=== PATIENT | female | born 1940 | race Caucasian/White ===

== ENCOUNTER 2019-07-13 23:06 | Inpatient (IN) | payer OTHER ==
[~2019-07-13] VITALS: Ht 165.1 cm; Wt 70.8 kg
--- NOTE | 2019-07-13 23:17 | NUR ---
Patient brought in by rescue ambulance 90 for c/o of headache and dizziness. Patient farsi speaking only. Placed in bed 2B, attached to bedside monitor. Pt noted to be grabbing her head No acute distress. Awaiting MD roberts.
[2019-07-13] MEDS ORDERED: ONDANSETRON 4 MG/2 ML VIAL IV ONE (23:30)
[2019-07-13] MEDS ORDERED: IV NS 1000 ML 1,000 ML IV ONE (23:30)
[2019-07-13] MEDS ORDERED: ONDANSETRON 4 MG/2 ML VIAL ONE (23:34)
[2019-07-13 23:50] LABS: BASOPHILS % (AUTO) 0.6 % (0.0-2.0); EOSINOPHILS % (AUTO) 0.4 % (0.0-7.0); HEMATOCRIT 34.1 % (31.2-41.9); HEMOGLOBIN 11.6 g/dL (10.9-14.3); LYMPHOCYTES # (AUTO) 1.4 K/uL (20.0-40.0); LYMPHOCYTES % (AUTO) 32.1 % (20.5-51.5); MEAN CORPUSCULAR HEMOGLOBIN 29.2 uug (24.7-32.8); MEAN CORPUSCULAR HGB CONC 34 g/dL (32.3-35.6); MEAN CORPUSCULAR VOLUME 86.2 fL (75.5-95.3); MONOCYTES # (AUTO) 0.6 K/uL (2.0-10.0); MONOCYTES % (AUTO) 13.8 % (0.0-11.0); NEUTROPHILS # (AUTO) 2.3 K/uL (1.8-8.9); NEUTROPHILS % (AUTO) 53.1 % (38.5-71.5); PLATELET COUNT (AUTO) 194 K/uL (179-408); RED BLOOD CELL COUNT(AUTO) 3.95 MIL/uL (3.63-4.92); WHITE BLOOD COUNT (AUTO) 4.4 K/uL (3.8-11.8)
--- NOTE | 2019-07-13 23:55 | NUR ---
Pt taken for CT
[2019-07-14] VITALS (8 sets, daily range): BP systolic 104–140; BP diastolic 42–95
[2019-07-14 00:12] LABS: CREATININE 0.9 mg/dL (0.6-1.3); POTASSIUM 3.3 mmol/L (3.5-5.1)
[2019-07-14 00:18] LABS: BILIRUBIN,DIRECT 0.1 mg/dL (0.0-0.2); BILIRUBIN,TOTAL 0.4 mg/dL (0.2-1.0); TOTAL PROTEIN, SERUM 7.3 g/dL (6.4-8.2)
[2019-07-14 00:25] LABS: *BILIRUBIN,URIN NEGATIVE (NEGATIVE); *CLARITY,URINE CLEAR (CLEAR); *COLOR,URINE YELLOW (YELLOW); *KETONES,URINE NEGATIVE (NEGATIVE); *UROBILINOGEN,URINE 0.2 E.U./dl (NORMAL); LEUKOCYTE ESTERASE ,URINE NEGATIVE (NEGATIVE); NITRITE, URINE NEGATIVE (NEGATIVE); UGLUCOSE NEGATIVE (NEGATIVE)
--- NOTE | 2019-07-14 00:30 | NUR ---
Pt back from CT accompanied by [employer] [facility] via [employer]. NAD, RA Reports significant decrease in dizziness Insisted on ambulating towards the bathroom assisted by daughter. Placed back on monitor IV saline intact and infusing well
[2019-07-14 00:33] LABS: *BLOOD, URINE TRACE (NEGATIVE)
[2019-07-14 00:34] LABS: BACTERIA,URINE R /HPF (NONE SEEN); MUCUS,URINE MODERATE /LPF (0-FEW); SQUAMOUS EPITHELIAL CELL,UR FEW /HPF (NONE SEEN); WBC,URINE 0-3 /HPF (0-3)
[2019-07-14 00:50] LABS: THYROID STIMULATING HORMONE 2.63 mIU/mL (0.358-3.740)
--- NOTE | 2019-07-14 01:41 | NUR ---
pending call back from [facility] (ins[facility]) Dx: chest pain Stable for transfer
--- NOTE | 2019-07-14 02:08 | NUR ---
Spoke with Antonia with [facility]. Per Antonia Reed is accepting pt and her call back number is [phone]
--- NOTE | 2019-07-14 02:19 | NUR ---
spoke with Sivan at [facility] stated she will page the on-call doctor.
--- NOTE | 2019-07-14 02:34 | NUR ---
ERMD on the phone with [facility] (Telly King) Dx: Chest Pain ok to admit to Tele Rm waiting call back fr Tele Rm nurse
[2019-07-14] MEDS ORDERED: IV NS 1000 ML 1,000 ML IV PRN (02:56)
[2019-07-14] MEDS ORDERED: POTASSIUM CHLORIDE 20 MEQ TAB.PRT.SR PO ONE (03:00)
[2019-07-14] MEDS ORDERED: Z GUARD REMEDY PASTE 57 GM TUBE TOP PRN (03:00)
[2019-07-14] MEDS ORDERED: MAGNESIUM HYDROXIDE 30 ML LIQUID UDC PO PRN (03:00)
[2019-07-14] MEDS ORDERED: ONDANSETRON 4 MG/2 ML VIAL IV PRN (03:00)
[2019-07-14] MEDS ORDERED: MORPHINE SULFATE 2 MG/1 ML DISP.SYRIN IV PRN (03:00)
[2019-07-14] MEDS ORDERED: ACETAMINOPHEN 325 MG TABLET PO PRN (03:00)
[2019-07-14] MEDS ORDERED: HYDROCODONE/APAP 5-325MG TABLET PO PRN (03:00)
--- NOTE | 2019-07-14 03:04 | NUR ---
Per Caleb Mccollum RN will call back to take report.
--- NOTE | 2019-07-14 03:12 | NUR ---
SBAR report given to Caleb in Telemetry unit.
--- NOTE | 2019-07-14 04:05 | NUR ---
Pt transferred to telemetry unit via gurney, on room air with IV NS infusing at 75ml/hr.
[2019-07-14] MEDS ORDERED: AZITHROMYCIN 250 MG TABLET PO SCH (04:23)
[2019-07-14] MEDS ORDERED: POTASSIUM CHLORIDE 20 MEQ TAB.PRT.SR ONE (05:34)
[2019-07-14] MEDS ORDERED: AZITHROMYCIN 250 MG TABLET ONE (05:34)
--- NOTE | 2019-07-14 06:13 | NUR ---
PT ARRIVED ON FLOOR VIA GURNEY AT AROUND 0405 ACCOMPANIED BY ER NURSE. ADMISSION PROCESS INITIATED AND FINISHED AT THIS TIME. FULL ASSESSMENT DONE. PT NOT IN ANY DISTRESS. SINUS RHYTHM ON TELE AT 85 WITH [address] AV BLOCK. SKIN IS INTACT. ALL BELONGINGS ACCOUNTED FOR. MAINLY FARSI SPEAKING BUT ABLE TO VERBALIZE BASIC NEEDS. OFFERED DVT PUMPS. PT REFUSED AT THIS TIME. ALL DUE MEDICATIONS GIVEN ORDERED. GIVEN WITH APPLE SAUCE, TOLERATED WELL. ABLE TO ASSIST TO BATHROOM. FALL PRECAUTIONS MAINTAINED. REINFORCED IMPORTANCE OF ASKING FOR HELP WHEN AMBULATING. ORIENTED WELL TO FACILITY, CALL LIGHT KEPT WITHIN REACH. BED IS LOCK. ALARM IS ON. WILL CONTINUE TO MONITOR AND ENDORSE ACCORDINGLY
--- NOTE | 2019-07-14 08:00 | NUR ---
Pt farsi speaking but able to make her needs known. Fall precaution implemented. Bed alarm on. Call light is within reach.
[2019-07-14] MEDS: PANTOPRAZOLE SODIUM 40 MG TABLET.DR PO SCH (08:06)
[2019-07-14] MEDS: CHOLECALCIFEROL 1,000 UNIT TABLET PO SCH (08:06)
[2019-07-14] MEDS: ASPIRIN 81 MG TAB.CHEW PO SCH (08:06)
[2019-07-14] MEDS: LOSARTAN POTASSIUM 50 MG TABLET PO SCH (08:07)
[2019-07-14] MEDS: AMLODIPINE 5 MG TABLET PO SCH (08:07)
[2019-07-14] MEDS ORDERED: Medication Not On Formulary EA (Losartan/Hydrochlorothiazide (Losartan-Hctz 100-12.5 Mg PO SCH (09:00)
[2019-07-14] MEDS ORDERED: HYDROCHLOROTHIAZIDE 12.5 MG CAPSULE PO SCH (09:00)
[2019-07-14 11:38] LABS: CREATININE 0.8 mg/dL (0.6-1.3); POTASSIUM 3.1 mmol/L (3.5-5.1)
[2019-07-14 11:43] LABS: BASOPHILS % (AUTO) 0.4 % (0.0-2.0); EOSINOPHILS % (AUTO) 0.4 % (0.0-7.0); HEMATOCRIT 35.5 % (31.2-41.9); LYMPHOCYTES # (AUTO) 1.4 K/uL (20.0-40.0); LYMPHOCYTES % (AUTO) 50.5 % (20.5-51.5); MEAN CORPUSCULAR HEMOGLOBIN 29.2 uug (24.7-32.8); MEAN CORPUSCULAR HGB CONC 34 g/dL (32.3-35.6); MEAN CORPUSCULAR VOLUME 86.2 fL (75.5-95.3); MONOCYTES # (AUTO) 0.3 K/uL (2.0-10.0); MONOCYTES % (AUTO) 11.7 % (0.0-11.0); PLATELET COUNT (AUTO) 208 K/uL (179-408); RED BLOOD CELL COUNT(AUTO) 4.12 MIL/uL (3.63-4.92)
[2019-07-14 11:55] LABS: WHITE BLOOD COUNT (AUTO) 2.8 K/uL (3.8-11.8)
[2019-07-14] MEDS ORDERED: FAMOTIDINE 20 MG TABLET PO SCH (13:15)
[2019-07-14 13:50] LABS: BAND % (MANUAL) 2 % (0-10); LYMPHOCYTES % (MANUAL) 42 % (20-40); MONOCYTES % (MANUAL) 16 % (2-10); NEUTROPHILS % (MANUAL) 40 % (42-75)
--- NOTE | 2019-07-14 16:00 | NUR ---
Medication reconciliation corrected further by daughter, SANTOS [id number], that loratadine and promethazine - dm was missing on list. Got order from NASREEN camara. ok for pt to use own cough meds and continue laratadine as prior.
[2019-07-14] MEDS: GABAPENTIN 100 MG CAPSULE PO SCH (17:29)
[2019-07-14] MEDS: APIXABAN 5 MG TABLET PO SCH (17:30)
[2019-07-14] MEDS: LORATADINE 10 MG TABLET PO SCH (17:32)
--- NOTE | 2019-07-14 18:26 | NUR ---
attempted to call dr pardo, pts own router operator, for carotid SAYRA done at may 2019. Pt is in no acute distress. Orthostatic done - no big change on b/p. No fall noted this shifts. Call light is within reach.
[2019-07-14] MEDS ORDERED: ATORVASTATIN 20 MG TABLET PO SCH (21:00)
[2019-07-14] MEDS ORDERED: PROMETHAZINE DM PO SCH (21:00)
--- NOTE | 2019-07-14 21:00 | NUR ---
Old IV site infiltrated. Reinserted on L Hand 22G, and resumed patient on IV fluids. Orthostatic blood pressure readings done. Will document.
[2019-07-15 00:46] VITALS: BP 120/57
--- NOTE | 2019-07-15 01:32 | NUR ---
Pt resting at this time, no signs of pain or shortness of breath noted. IV running as ordered.
[2019-07-15 05:05] VITALS: BP_SYST 137; BP_SYST 144; BP_DIAS 57; BP_DIAS 62
[2019-07-15 05:06] VITALS: BP 144/60
[2019-07-15] MEDS: PANTOPRAZOLE SODIUM 40 MG TABLET.DR PO SCH (06:38)
[2019-07-15 07:01] LABS: BASOPHILS % (AUTO) 0.4 % (0.0-2.0); EOSINOPHILS # (AUTO) 0.1 K/uL (0.0-0.7); EOSINOPHILS % (AUTO) 1.9 % (0.0-7.0); HEMATOCRIT 33.2 % (31.2-41.9); HEMOGLOBIN 11.4 g/dL (10.9-14.3); LYMPHOCYTES # (AUTO) 1.6 K/uL (20.0-40.0); LYMPHOCYTES % (AUTO) 52.8 % (20.5-51.5); MEAN CORPUSCULAR HEMOGLOBIN 29.8 uug (24.7-32.8); MEAN CORPUSCULAR HGB CONC 34 g/dL (32.3-35.6); MEAN CORPUSCULAR VOLUME 86.5 fL (75.5-95.3); MONOCYTES # (AUTO) 0.4 K/uL (2.0-10.0); MONOCYTES % (AUTO) 12.6 % (0.0-11.0); NEUTROPHILS % (AUTO) 32.3 % (38.5-71.5); PLATELET COUNT (AUTO) 208 K/uL (179-408); RED BLOOD CELL COUNT(AUTO) 3.84 MIL/uL (3.63-4.92); WHITE BLOOD COUNT (AUTO) 3.1 K/uL (3.8-11.8)
[2019-07-15 07:15] LABS: ALANINE AMINOTRANSFERASE 30 U/L (14-59); ALKALINE PHOSPHATASE 78 U/L (50-136); ASPARTATE AMINOTRANSFERASE 32 U/L (15-37); BILIRUBIN,TOTAL 0.2 mg/dL (0.2-1.0); CARBON DIOXIDE 29 mmol/L (21-32); CHLORIDE 103 mmol/L (98-107); CHOLESTEROL 114 mg/dL (<200); CREATININE 0.7 mg/dL (0.6-1.3); GLUCOSE 105 mg/dL (74-106); HDL CHOLESTEROL 11 mg/dL (40-60); MAGNESIUM 1.7 mg/dL (1.8-2.4); PHOSPHOROUS 2.3 mg/dL (2.5-4.9); POTASSIUM 3.8 mmol/L (3.5-5.1); TOTAL PROTEIN, SERUM 6.5 g/dL (6.4-8.2); TRIGLYCERIDES 133 MG/DL (30-150); UREA NITROGEN, BLOOD 11 mg/dL (7-18); URIC ACID 4.4 mg/dL (2.6-6.0)
[2019-07-15 07:28] LABS: THYROID STIMULATING HORMONE 3.461 mIU/mL (0.358-3.740)
[2019-07-15] MEDS: GABAPENTIN 100 MG CAPSULE PO SCH ×2 (08:37→12:52)
[2019-07-15] MEDS: CHOLECALCIFEROL 1,000 UNIT TABLET PO SCH (08:37)
[2019-07-15] MEDS: ASPIRIN 81 MG TAB.CHEW PO SCH (08:38)
[2019-07-15] MEDS: LORATADINE 10 MG TABLET PO SCH (08:38)
[2019-07-15] MEDS: LOSARTAN POTASSIUM 50 MG TABLET PO SCH (08:39)
[2019-07-15] MEDS: AMLODIPINE 5 MG TABLET PO SCH (08:40)
[2019-07-15] MEDS: APIXABAN 5 MG TABLET PO SCH (08:41)
[2019-07-15] MEDS ORDERED: AZITHROMYCIN 250 MG TABLET PO SCH (09:00)
[2019-07-15] MEDS ORDERED: SOTALOL HCL 80 MG TABLET PO SCH (09:00)
[2019-07-15 11:30] VITALS: BP 108/48
--- NOTE | 2019-07-15 11:30 | NUR ---
Loud Bed alarm turned on. Went to pt's room. As soon as i went in pt was oob standing and pt fell back without hitting his head. Notified Dr Hernández of fall. Pt is able to have good ROM bilateral shoulder. Pt denies any c/o pain. Addendum: 07/15/19 at 1940 by ELIZABETH LOPEZ RN wrong patient
[2019-07-15] MEDS: MAGNESIUM SULFATE/D5W 100 ML IV SCH ×2 (11:42→12:47)
--- NOTE | 2019-07-15 15:00 | NUR ---
pt discharge home with home health set up by case management. Pt denies any c/o pain. Vaccination Addendum: 07/15/19 at 1600 by HOMER JESSICA LEE Vaccination to be f/u with their PMD. pt is to see her PMD within 1 week. Daughter states they have an appt with their PMD next . No sob noted. IV taken out on left hand. Discharge instructions given to patient and daughter. Daughter Verbalized understanding.
== END 2019-07-15 15:45 | disposition home or self-care (01) | DRG 422 ==
LOC: ER 23:07 → TELE3 07-14 03:49
PROVIDERS: ADMIT Nurse Practitioner Acute Care; ATTEND Nurse Practitioner Acute Care
DX: E86.0 Dehydration (principal); I08.1 Rheumatic disorders of both mitral and tricuspid valves; E87.1 Hypo-osmolality and hyponatremia; E87.6 Hypokalemia; T50.2X5A Adverse effect of carbonic-anhydrase inhibitors, benzothiadiazides and other diuretics, initial encounter; Y92.89 Other specified places as the place of occurrence of the external cause; K21.9 Gastro-esophageal reflux disease without esophagitis; I25.10 Atherosclerotic heart disease of native coronary artery without angina pectoris; I25.2 Old myocardial infarction; Z95.5 Presence of coronary angioplasty implant and graft; Z79.01 Long term (current) use of anticoagulants; R42 Dizziness and giddiness; Z82.49 Family history of ischemic heart disease and other diseases of the circulatory system; I10 Essential (primary) hypertension; I44.0 Atrioventricular block, first degree
CPT/HCPCS: 36415; 70030-TC; 70450; 71045; 83735; 84100; 84300; 84443; 84550; 85025; 85730; 87086; 87400; 93005; 93307; 93880; A4663; G0378; J2405; J3475; J7030; Q0144